=== PATIENT | male | born 1985 | race Two or more races ===

== ENCOUNTER 2024-03-22 21:02 | Emergency (ER) | payer MEDICAID, OTHER ==
[~2024-03-22] VITALS: Ht 170.2 cm; Wt 68.0 kg
[2024-03-22 21:10] VITALS: BP 136/91; RESP 18; O2SAT 100
[2024-03-22 21:30] VITALS: PULSE 70
[2024-03-22] MEDS ORDERED: SODIUM CHLORIDE 0.9% 1,000 ML IV ONE (21:30)
[2024-03-22] MEDS ORDERED: ONDANSETRON HCL 4 MG/2 ML VIAL IV ONE (21:30)
[2024-03-22] MEDS ORDERED: FAMOTIDINE (10MG/ML) 2ML VL IV ONE (21:30)
--- NOTE | 2024-03-22 21:30 | ED.PDOC ---
History of Present Illness HPI Comments 38 y/o M, with a Hx of polysubstance use, is BIBA for c/o non-radiating, diffused abdominal pain, nausea, vomiting, and diarrhea since 1414, today. Patient reports sudden onset of symptoms after eating sushi and drinking half-a-beer, this afternoon. Patient comments on "smoking marijuana" and taking a "bath" in attempt to manage symptoms to no relief or improvement prior to calling EMS. Per EMS report, patient had a blood glucose of 208 on scene and was given Zofran en route, with patient's remaining vitals being stable and within normal limits. Patient comments on no recent stress, injuries, sick contact, travel, or additional substance use/exposure. Patient endorses no additional re levant or pertinent past medical, surgical, or family Hx. Patient denies having any hematemesis, blood-streaked stools, urinary symptoms, fever, chills, or other associated symptoms or modifiers at this time. 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, Treatment (Zofran ) Past Medical History PAST MEDICAL HISTORY: Denies Surgical History: Denies all surgeries Family History Family History: Unknown Social History Smoker: Cigarettes Alcohol: Occasionally Drugs: Marijuana Lives In: Home Constitutional: denies: chills, diaphoresis, fatigue, fever, malaise, sweats, weakness, others EENTM: denies: blurred vision, double vision, ear bleeding, ear discharge, ear drainage, ear pain, ear ringing, eye pain, eye redness, hearing loss, mouth pain, mouth swelling, nasal discharge, nose bleeding, nose congestion, nose pain, photophobia, tearing, throat pain, throat swelling, voice changes, others Respiratory: denies: cough, hemoptysis, orthopnea, SOB at rest, shortness of breath, SOB with excertion, stridor, wheezing, others Cardiovascular: denies: chest pain, dizzy spells, diaphoresis, Dyspnea on exertion, edema, irregular heart beat, left arm pain, lightheadedness, palpitations, PND, syncope, others Gastrointestinal: reports: abdominal pain, diarrhea, nausea, vomiting; denies: abdomen distended, blood streaked bowels, constipated, dysphagia, difficulty swallowing, hematemesis, melena, poor appetite, poor fluid intake, rectal bleeding, rectal pain, others Genitourinary: denies: burning, dysuria, flank pain, frequency, hematuria, incontinence, penile discharge, penile sore, pain, testicle pain, testicle swelling, urgency, others Neurological: denies: dizziness, fainting, headache, left sided numbness, left sided weakness, numbness, paresthesia, pre-existing deficit, right sided numbness, right sided weakness, seizure, speech problems, tingling, tremors, weakness, others Musculoskeletal: denies: back pain, gout, joint pain, joint swelling, muscle pain, muscle stiffness, neck pain, others Integumetry: denies: bruises, change in color, change in hair/nails, dryness, laceration, lesions, lumps, rash, wounds, others Allergic/Immunocompromised: denies: Difficulty Healing, Frequent Infections, Hives, Itching, others Hematologic/Lymphatic: denies: anemia, blood clots, easy bleeding, easy bruising, swollen glands, others Endocrine: denies: excessive hunger, excessive sweating, excessive thirst, excessive urination, flushing, intolerance to cold, intolerance to heat, unexplained weight gain, unexplained weight loss, others Psychiatric: denies: anxiety, bipolar disorder, depression, hopeless, panic disorder, schizophrenia, sleepless, suicidal, others All Other Systems: Reviewed and Negative Physical Exam General Appearance: No Apparent Distress, Normal HEENT: Normal ENT Inspection, Pharynx Normal, TMs Normal Neck: Full Range of Motion, Non-Tender, Normal, Normal Inspection Respiratory: Chest Non-Tender, Lungs Clear, No Accessory Muscle Use, No Respiratory Distress, Normal Breath Sounds Cardiovascular: No Edema, No JVD, No Murmur, No Gallop, Normal Peripheral Pulses, Regular Rate/Rhythm Breast Exam: Deferred Gastrointestinal: Diffuse (tenderness), No Organomegaly, No Pulsatile Mass, Normal Bowel Sounds, Soft, Tenderness (diffused ) Genitalia: Deferred Pelvic: Deferred Rectal: Deferred Extremities: No calf tenderness, Normal capillary refill, Normal inspection, Normal range of motion, Non-tender, No pedal edema Musculoskeletal : Apperance: Normal Neurologic: Alert, environmental permitting specialist II-XII nml as Tested, No Motor Deficits, Normal Affect, Normal Mood, No Sensory Deficits Cerebellar Function: Normal Reflexes: Normal Skin: Dry, Normal Color, Warm Lymphatic: No Adenopathy Was a procedure done? Was a procedure done?: No EKG EKG : Pulse Rate (adult): 70 [place]: Normal Cardiac Rhythm: NSR Block: None Hypertrophy: None ST: Normal Differential Dx Considerations may include: spoiled food, gastritis, gastroenteritis, PUD, UTI, cannabinoid hyperemesis syn drome, acute abdomen X-Ray, Labs, Meds, VS Vital Signs Date Time Temp Pulse Resp B/P (MAP) Pulse Ox O2 Delivery O2 Flow Rate FiO2 03/22/24 21:30 70 03/22/24 21:14 70 03/22/24 21:10 99.0 80 18 136/91 (106) 100 Lab Test 03/22/24 21:18 Range/Units White Blood Count 14.0 H 4.4-10.8 10^3/uL Red Blood Count 5.31 4.5-5.90 10^6/uL Hemoglobin 17.7 H 13.5-17.5 g/dL Hematocrit 51.8 41.0-53.0 % Mean Corpuscular Volume 97.7 80.0-100.0 fL Mean Corpuscular Hemoglobin 33.3 H 28.0-32.0 pg Mean Corpuscular Hemoglobin Concent 34.1 32.0-36.0 g/dL Red Cell Distribution Width 13.3 11.8-14.3 % Platelet Count 256 140-450 10^3/uL Mean Platelet Volume 7.3 6.9-10.8 fL Neutrophils (%) (Auto) 37.0-80.0 % Lymphocytes (%) (Auto) 10.0-50.0 % Monocytes (%) (Auto) 0.0-12.0 % Basophils (%) (Auto) 0.0-2.0 % Neutrophils # (Auto) 1.6-8.6 10 ^3/uL Lymphocytes # (Auto) 0.4-5.4 10 ^3/uL Monocytes # (Auto) 0-1.3 10 ^3/uL Differential Total Cells Counted 100.0 100 Neutrophils % (Manual) 91 H 37.0-80.0 Band Neutrophils % (Manual) 0 Lymphocytes % (Manual) 4 L 10.0-50.0 Monocytes % (Manual) 5 0-12 Eosinophils % (Manual) 0 0-7 Basophils % (Manual) 0 0.0-2.0 Metamyelocytes % (manual) 0 Myelocytes % (Manual) 0 Promyelocytes % (Manual) 0 Blast Cells % (Manual) 0 Reactive Lymphocytes 0 Platelet Estimate Adequate Sodium Level 139 136-145 mmol/L Potassium Level 4.2 3.5-5.1 mmol/L Chloride Level 103 98-107 mmol/L Carbon Dioxide Level 26 20-31 mmol/L Anion Gap 10 5-15 Blood Urea Nitrogen 9 9-23 mg/dL Creatinine 1.23 0.700-1.30 mg/dL Glomerular Filtration Rate Calc 77 >90 mL/min BUN/Creatinine Ratio 7.3 L 10.0-20.0 Serum Glucose 177 H 74-106 mg/dL Calcium Level 10.7 H 8.7-10.4 mg/dL Time of 1ST Reevaluation: 21:45 Reevaluation 1ST: Unchanged Patient Education/Counseling: Diagnosis, Treatment Family Education/Counseling: No Family Present Departure 1 Departure Time of Disposition: 22:50 (Patient likely with viral gastroenteritis. Polysubstance abuse. Patient eloped after receiving his medicine.) Impression: Primary Impression: Viral gastroenteritis Additional Impressions: Polysubstance abuse Eloped from emergency department Disposition: 07 LEFT AWOL/ELOPED Condition: Fair Critical Care Note Critical Care Time?: No Stability Stability form required: No Heart Score Heart Score: Heart Score Response (Comments) Value History N/A 0 EKG N/A 0 Age N/A 0 Risk Factors N/A 0 Troponin N/A 0 Total 0 I personally scribed for THAIS JACKSON MD ([email or web address]) on 03/22/24 at 21:30. Electronically submitted by Gautam Marin ([email or web address]). THAIS JACKSON MD Mar 22, 2024 21:30
[2024-03-22 21:35] LABS: Hemoglobin 17.7 g/dL (13.5-17.5)
[2024-03-22 21:37] LABS: Hematocrit 51.8 % (41.0-53.0); Mean Corpuscular Hemoglobin 33.3 pg (28.0-32.0); Mean Corpuscular Hgb Conc. 34.1 g/dL (32.0-36.0); Mean Corpuscular Volume 97.7 fL (80.0-100.0); Platelet Count (auto) 256 10^3/uL (140-450); Red Blood Cells 5.31 10^6/uL (4.5-5.90); Red Cell Distribution Width 13.3 % (11.8-14.3)
[2024-03-22 21:41] LABS: Chloride 103 mmol/L (98-107); Potassium 4.2 mmol/L (3.5-5.1); Sodium 139 mmol/L (136-145)
[2024-03-22 21:42] LABS: Anion Gap 10 (5-15); Calcium 10.7 mg/dL (8.7-10.4); Carbon Dioxide 26 mmol/L (20-31)
[2024-03-22 21:45] LABS: Band Neutrophils % (manual) 0; Basophils % (manual) 0 (0.0-2.0); Blast Cells 0; Eosinophils % (manual) 0 (0-7); Metamyelocytes % 0; Myelocytes % 0; Promyelocytes % 0; Reactive Lymphocytes 0
[2024-03-22 21:47] LABS: BUN/Creatinine Ratio 7.3 (10.0-20.0); Blood Urea Nitrogen 9 mg/dL (9-23); Glucose 177 mg/dL (74-106)
[2024-03-22 22:19] LABS: Lymphocytes % (manual) 4 (10.0-50.0); Monocytes % (manual) 5 (0-12); Platelet Estimate Adequate
--- NOTE | 2024-03-22 23:37 | ECG ---
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
== END 2024-03-22 22:51 | disposition left against medical advice (07) ==
LOC: ER 21:02 → EDBD 21:02 → ER 22:51
DX: A08.4 Viral intestinal infection, unspecified (principal); F19.10 Other psychoactive substance abuse, uncomplicated
CPT/HCPCS: 36415; 80048; 85007; 85027; 93005